=== PATIENT | male | born 1965 | race African-American/Black ===

== ENCOUNTER 2020-06-25 21:01 | Inpatient (IN) | payer OTHER ==
[~2020-06-25] VITALS: Ht 170.2 cm; Wt 71.7 kg
[~2020-06-25 21:01] MED LIST: LUTERA1 EACH PO
[2020-06-25 21:06] VITALS: BP 170/93
[2020-06-25 21:50] LABS: ABSOLUTE NEUTROPHILS 11.2 thou/uL (1.4-8.2); BASOPHILS 0.8 % (0.0-2.0); EOSINOPHILS 0.3 % (0.0-3.0); HEMATOCRIT 46.1 % (42.0-52.0); HEMOGLOBIN 15.2 gm/dL (14.0-18.0); LYMPHOCYTES 4.6 % (24.0-44.0); MCH 31.3 pg (26.0-34.0); MCHC 32.9 g/dL (28.0-37.0); MCV 94.9 fL (80.0-100.0); MONOCYTES 8.6 % (1.0-8.0); PLATELET COUNT 239 thou/uL (150-400); POLYS 85.7 % (36.0-66.0); RBC 4.86 mil/uL (4.50-6.00); RDW 13.8 % (10.5-14.5)
[2020-06-25 22:58] LABS: ALBUMIN 3.7 g/dL (3.4-5.0); CREATININE 0.9 mg/dL (0.7-1.3); POTASSIUM 3.5 mmol/L (3.5-5.1); TOTAL BILIRUBIN 0.6 mg/dL (0.2-1.0); TOTAL PROTEIN 7.2 g/dL (6.4-8.2)
[2020-06-26 01:09] VITALS: BP 132/73
[2020-06-26 02:22] LABS: AMP/METHAMP Negative (Negative); BARBITURATES Negative (Negative); BENZODIAZEPINES Negative (Negative); COCAINE Negative (Negative); METHADONE Negative (Negative); OPIATES Negative (Negative); PCP POSITIVE (Negative)
[2020-06-26 02:22] LABS: CHOLESTEROL 169 mg/dL (<200); HDL CHOLESTEROL 118 mg/dL (>40); LDL CHOLESTEROL 33 mg/dL (<100); TC:HDL 1.4 Ratio (Not establshd); TRIGLYCERIDE 94 mg/dL (<150); VLDL 19 mg/dL (<40)
[2020-06-26 02:44] LABS: SERUM ASSESSMENT Clear
[2020-06-26 02:47] VITALS: BP 169/99
--- NOTE | 2020-06-26 03:58 | NUR ---
ADMITTED FROM ER AT 0230 PER CART. UP TO BATHROOM WITH STANDBY ASSIST. ORIENTED TO ROOM AND FLOOR POLICIES. ADMISSION PROCESS COMPLETED. ORIENTED X4 AT THIS TIME. PAIN IN ABDOMAN GENERALIZED. NPO. WORKING ON GOALS AND PLAN OF CARE FOR NOC. NOT PROGRESSING TOWARDS DISCHARGE GOALS AT THIS TIME. CONTINUE TO ASSES CLOSELY.
[2020-06-26 05:53] VITALS: BP 125/62
[2020-06-26 08:15] VITALS: BP 147/77
--- NOTE | 2020-06-26 12:37 | NUR ---
met with patient who resides in [facility] [place]. He admits with ETOH withdraw. Patient reports he recalls coming to hospital. He has a friend as emergency contact. He reports no family in area. He denies daily ETOH use and does not feel needs any resources for ETOH. 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 He does not work. he lives in [place]. He reports he applied for disability 6-7 months prior. Left message with [facility]. casemgt following.
--- NOTE | 2020-06-26 15:37 | NUR ---
GROGGY. EYES BLOODSHOT. TAKING MORPHINE IVP ORDERED. IVF RATE INCREASED. FALL PRECAUTIONS IN PLACE. WILL CONTINUE TO FOLLOW CLOSELY.
[2020-06-26 16:00] VITALS: BP 131/79
[2020-06-26 20:05] VITALS: BP 143/86
[2020-06-26 20:09] LABS: URINE BILIRUBIN NEGATIVE (Negative); URINE BLOOD NEGATIVE (Negative); URINE CLARITY CLEAR; URINE COLOR YELLOW; URINE GLUCOSE-RANDOM* NEGATIVE (Negative); URINE KETONES 2+ (Negative); URINE LEUKOCYTES-REFLEX NEGATIVE (Negative); URINE NITRITE-REFLEX NEGATIVE (Negative); URINE PROTEIN (DIPSTICK) NEGATIVE (Negative); URINE UROBILINOGEN 0.2 E.U./dl (0.2-1.0)
[2020-06-27 04:05] VITALS: BP 96/70
--- NOTE | 2020-06-27 05:40 | NUR ---
PATIENT HAS BEEN SLEEPING MOST OF THE NIGHT. UP WITH ASSISTENCE. FALL PRECAUTIONS IN PLACE. GIVEN MORPHINE FOR PAIN PER ORDERS. FOLLOWING CARE PLAN AND ASSESSING NEEDED.
[2020-06-27 05:42] LABS: HEMATOCRIT 38.4 % (42.0-52.0); MCH 31.1 pg (26.0-34.0); MCHC 32.9 g/dL (28.0-37.0); MCV 94.6 fL (80.0-100.0); RBC 4.06 mil/uL (4.50-6.00); RDW 13.1 % (10.5-14.5); WBC 6.6 thou/uL (4.0-11.0)
[2020-06-27 05:53] LABS: CALCIUM 8.5 mg/dL (8.5-10.1); CREATININE 0.9 mg/dL (0.7-1.3); MAGNESIUM 1.5 mg/dL (1.8-2.4); POTASSIUM 3.7 mmol/L (3.5-5.1)
[2020-06-27 06:00] LABS: HEMOGLOBIN 12.6 gm/dL (14.0-18.0)
[2020-06-27 09:00] VITALS: BP 123/85
[2020-06-27 15:30] VITALS: BP 104/67
--- NOTE | 2020-06-27 17:23 | NUR ---
ASSSESSMENT CHARTED - MEDS PER NOV - GIVEN PAIN MEDS X 1 SO FAR THIS SHIFT WITH GOOD RESULTS - PT SLEEPING. PT STARTED OM SOFT FIBER RESTRICTED DIET - OLIVE WELL - NO CO'S OF NAUSEA OF INCREASED ABDO PAIIN - IV FLUIDS TURNED DOWN TO 75 CC HOUR ORDERED. PT UP AMBULATED TO BATHROOM - STEADY ON FEET. NO CO'S AT THE PRESENT TIME. POSSIBLE D//C TOMORROW.
[2020-06-27 20:21] VITALS: BP 121/66
[2020-06-28 03:40] VITALS: BP 144/75
--- NOTE | 2020-06-28 07:46 | NUR ---
assumed pt care at the change of shift, assessments as charted, c/o abdominal pain of a 03/15, pain medicine given with partial relief, denies having concerns, remains on iv fluids, passed on report to day nurse
[2020-06-28 08:06] VITALS: BP 132/80
[2020-06-28 11:48] VITALS: BP 143/77
[2020-06-28] MEDS ORDERED: VITAMIN B-1100 M2 PO (11:54)
[2020-06-28] MEDS ORDERED: PROTONIX40 M4 PO (11:55)
--- NOTE | 2020-06-28 13:57 | NUR ---
Patient to [facility] over weekend. patient has no health insurance, reports he resides in [facility]. Rec prescriptions vouched for $13.26 for prescriptions. They are being held in Medroom. Vouched for cane in room and rec. Patient has [facility] and [facility] to assist with f/u medical care. Patient needs cab ride home. Voucher to apt on patients chart. Verified address. no further needs.
[2020-06-28 16:55] VITALS: BP 135/68
--- NOTE | 2020-06-28 18:39 | NUR ---
ASSESSMENT CHARTED - MEDS PER NOV - FLUIDS D/C'D PT UP IN ROOM OLIVE. OLIVE DIET AND FLUIDS - REFUSED TO DRINK WATER WILL ONLY DRINK [place]. MEDS FOR PATIENT DISCHARGE TOMORROW FILLED AND IN MEDICATION ROOM ON COUNTER. PT GIVEN TRAMADOL X 2 DOSES FOR CO'S OF P[AIN PT STATES THAT IT DOES LITTLE BUT IS FOUND ASLEEP POST DOSING. NO CO'S AT THE PRESENT TIME.
[2020-06-28 20:00] VITALS: BP 161/81
--- NOTE | 2020-06-28 23:51 | NUR ---
assumed pt care at around 1900, pt is awake, alert and orientedx4, c/o abdominal pain of a 7/, pain medicine given with partial relief, denies soa, or chest pain, remains on RA, denies having concerns, pt to discharge tomorrow, report called to rn on 4s, pt to transfer to room 441
[2020-06-28 23:59] VITALS: BP 130/72
--- NOTE | 2020-06-29 00:04 | NUR ---
pt transferred to room 440 with all his belongings and discharge medications.
[2020-06-29 00:05] VITALS: BP 126/69
--- NOTE | 2020-06-29 00:55 | NUR ---
PATIENT TRANSFERRED FROM 2N ROOM 209 ARRIVING AT 0005 VIA BED WITH WATER MAIN INSTALLER HELPER. ALERT AND ORIENTED X4. DENIES PAIN. COOPERATIVE WITH CARE. PATIENT CAME WITH MEDICATION WHICH WAS PLACED IN THE PYXIS. VSS. SCHEDULED TO D/C IN THE AM WITH OUTPATIENT INSTRUCTIONS TO HAVE AN ULTRA SOUND. PATIENT RESTING QUIETLY AT TIME OF NOTE. WILL MONITOR.
--- NOTE | 2020-06-29 03:38 | NUR ---
PATIENT TO BE DISCHARGED TODAY. MEDICATED X1 DURING THE NIGHT WITH TRAMADOL. PATIENT ATE A SNACK AND HAD A FEW CANS OF SODA. COOPERATIVE WITH CARE. RESTING QUIETLY, WILL MONITOR.
[2020-06-29 05:01] VITALS: BP 118/63
[2020-06-29 07:34] VITALS: BP 158/78
[2020-06-29 09:14] VITALS: BP 158/78
--- NOTE | 2020-06-29 10:09 | NUR ---
ASSUMED CARE OF PT AT 0700. PT IS A&OX4 AND VITAL SIGNS ARE STABLE. PT REPORTS ABDOMINAL PAIN, MANAGED WITH PO MEDICATIONS. ORDERS FOR D/C TODAY. D/C INSTRUCTIONS, EDUCATION, MEDICATIONS AND F/U APPOINTMENTS REVIEWED. D/C MEDICATIONS SENT WITH PT. PT ASSISTED TO ED BY NURSING STAFF WITH CAB VOUCHER AT 1000.
== END 2020-06-29 10:12 | disposition home or self-care (01) | DRG 439 ==
LOC: ER 21:01 → EROBS 06-26 00:51 → 2N 06-26 00:51 → 4S 06-29 00:27
PROVIDERS: Emergency Medicine; Nurse Practitioner Family; Physician Assistant; ADMIT Hospitalist; ATTEND Hospitalist
DX: K85.90 Acute pancreatitis without necrosis or infection, unspecified (principal); E87.2 Acidosis; I10 Essential (primary) hypertension; F17.210 Nicotine dependence, cigarettes, uncomplicated; F10.229 Alcohol dependence with intoxication, unspecified; F12.10 Cannabis abuse, uncomplicated; Y90.9 Presence of alcohol in blood, level not specified; F20.9 Schizophrenia, unspecified; Z88.1 Allergy status to other antibiotic agents; Z88.2 Allergy status to sulfonamides; Z90.49 Acquired absence of other specified parts of digestive tract
CPT/HCPCS: 10194